=== PATIENT | female | born 1990 | race Caucasian/White ===

== ENCOUNTER 2016-09-25 07:52 | Emergency (ER) | payer SELFPAY ==
[~2016-09-25] VITALS: Ht 177.8 cm; Wt 73.2 kg
[2016-09-25 07:53] VITALS: BP 114/76
== END 2016-09-25 08:39 | disposition home or self-care (01) ==
LOC: ED 08:15
DX: B35.9 Dermatophytosis, unspecified (principal); B18.2 Chronic viral hepatitis C; Z86.19 Personal history of other infectious and parasitic diseases; F17.210 Nicotine dependence, cigarettes, uncomplicated
CPT/HCPCS: 99281; 99282

== ENCOUNTER 2016-12-22 10:02 | Emergency (ER) | payer MEDICAID ==
[~2016-12-22] VITALS: Ht 177.8 cm; Wt 67.0 kg
[2016-12-22 10:49] LABS: HCG UR LOT HCG7030192
[2016-12-22 10:50] LABS: HEMATOCRIT 47.7 % (34.6-47.8); HEMOGLOBIN 16.2 g/dL (11.7-16.4); WHITE BLOOD COUNT 6.7 x10^3/uL (3.4-10)
[2016-12-22 10:56] LABS: HCG UR OBC PASS
[2016-12-22 10:59] LABS: ASPARTATE AMINO TRANSFERASE 61 U/L (15-37); BLOOD UREA NITROGEN 8 mg/dL (7-18)
[2016-12-22] MEDS ORDERED: CEFTRIAXONE PMX 1GM/50ML 50 ML ONE (12:13)
[2016-12-22 12:20] VITALS: BP 103/72
[2016-12-22] MEDS ORDERED: CEFTRIAXONE PMX 1GM/50ML 50 ML IV ONE (12:30)
== END 2016-12-22 12:49 | disposition home or self-care (01) ==
LOC: ED 12:00
DX: N30.00 Acute cystitis without hematuria (principal); R10.84 Generalized abdominal pain; F15.10 Other stimulant abuse, uncomplicated
CPT/HCPCS: 36415; 74020; 80053; 81001; 81025; 83690; 85025; 87086; 96365; 99285; J0696